=== PATIENT | female | born 1975 | race Caucasian/White ===

== ENCOUNTER 2019-04-14 12:15 | Emergency (ER) | payer OTHER ==
--- NOTE | 2019-04-14 12:38 | PDOC ---
Rapid Medical Evaluation Time Seen by Provider: 04/14/19 12:34 Medical Evaluation: 04/14/19 12:34 CC: Midsternal chest pain x3 days. PMHx- hypothyroidism, HTN PE: HR-109. BP-157/101. Lungs CTAB. No m/r/g. Orders: cardiac w/u Patient will proceed to the ED for further evaluation. 04/14/19 12:38 Discharge Disposition - Diagnosis Chest pain - Referrals - Patient Instructions - Post Discharge Activity
[2019-04-14 12:40] VITALS: BMI 36.3
--- NOTE | 2019-04-14 14:00 | PDOC ---
History of Present Illness - General History Source: Patient Exam Limitations: No Limitations - History of Present Illness Initial Comments: 04/14/19 13:54 43-year-old female with history of seasonal allergies, hypertension and hypothyroidism presents complaining of nonradiating midsternal chest pain, burning sensation and aching in nature constant for 2 days. Denies shortness of breath, palpitations, near syncope, abdominal pain, back pain, cough, recent illness, fever, chills, trauma or any other complaints. Her grandmother 2 days ago, today is the . Patient took 1 muscle relaxant and Naprosyn at 9:30 AM today with no relief of symptoms. LMP April 09, 2019. ROS: GENERAL/CONSTITUTIONAL: No fever, chills, weakness, dizziness HEAD, EYES, EARS, NOSE AND THROAT: No changes in vision, No ear pain or discharge, No sore throat CARDIOVASCULAR: Sternal chest pain RESPIRATORY: No shortness of breath or cough GASTROINTESTINAL: No pain, nausea, vomiting, diarrhea or constipation GENITOURINARY: No dysuria MUSCULOSKELETAL: No neck or back pain SKIN: No rash NEUROLOGIC: No headache, vertigo, loss of consciousness, or loss of sensation PE: GENERAL: well-appearing, tearful HEAD: NCAT EYES: Pupils equal, round and reactive to light, sclera anicteric, conjunctiva clear ENT: pharynx: no erythema, no exudate, uvula midline NECK: supple CHEST: nontender RESP: clear, no w/r/r CARDIO: rrr, no m/g/r ABD: +BS, soft, nontender, non distended BACK: no midline spinal ttp, no CVAT EXTREMITIES: Normal range of motion, no edema NEUROLOGICAL: Normal speech, normal gait SKIN: Warm, Dry Is this a multiple visit Asthma Patient?: No <Karina Maurer - Last Filed: 04/14/19 16:20> <Antonia Lucia - Last Filed: 04/14/19 17:00> - General Chief Complaint: Chest Pain Stated Complaint: chest tightness Time Seen by Provider: 04/14/19 12:34 Past History - Past Medical History COPD: No HTN: Yes Thyroid Disease: Yes (hypothyroid) - Psycho Social/Smoking Cessation Hx Smoking History: Never smoked Hx Alcohol Use: No Drug/Substance Use Hx: No <Karina Maurer - Last Filed: 04/14/19 16:20> <Antonia Lucia - Last Filed: 04/14/19 17:00> - Past Medical History Allergies/Adverse Reactions: Allergies Allergy/AdvReac Type Severity Reaction Status Date / Time No Known Allergies Allergy Verified 04/14/19 12:35 Home Medications: Ambulatory Orders Hydrochlorothiazide 25 mg PO DAILY 04/14/19 Levothyroxine [Synthroid -] 25 mcg PO DAILY 04/14/19 *Physical Exam - Vital Signs Last Vital Signs Temp Pulse Resp BP Pulse Ox 100.8 F H 112 H 20 157/110 H 97 04/14/19 12:35 04/14/19 12:35 04/14/19 12:35 04/14/19 12:35 04/14/19 12:35 <Karina Maurer - Last Filed: 04/14/19 16:20> - Vital Signs Last Vital Signs Temp Pulse Resp BP Pulse Ox 100.8 F H 112 H 20 157/110 H 97 04/14/19 12:35 04/14/19 12:35 04/14/19 12:35 04/14/19 12:35 04/14/19 12:35 <Antonia Lucia - Last Filed: 04/14/19 17:00> ED Treatment Course - LABORATORY CBC & Chemistry Diagram: 04/14/19 13:52 04/14/19 13:52 <Karina Maurer - Last Filed: 04/14/19 16:20> - LABORATORY CBC & Chemistry Diagram: 04/14/19 13:52 04/14/19 13:52 - ADDITIONAL ORDERS Additional order review: Laboratory Results 04/14/19 04/14/19 04/14/19 15:39 13:52 13:52 PT with INR 13.60 H INR 1.15 H PTT (Actin FS) 36.0 Sodium 139 Potassium 3.5 Chloride 105 Carbon Dioxide 26 Anion Gap 8 BUN 9.0 Creatinine 0.8 Est GFR (CKD-EPI)AfAm 104.65 Est GFR (CKD-EPI)NonAf 90.30 Random Glucose 88 Calcium 8.8 Magnesium 2.3 Total Bilirubin 0.6 AST 21 ALT 20 Alkaline Phosphatase 69 Creatine Kinase 129 Troponin I < 0.02 Total Protein 7.9 Albumin 4.0 04/14/19 13:52 RBC 4.31 MCV 83.5 MCHC 33.8 RDW 13.2 MPV 9.2 Neutrophils % 83.1 H Lymphocytes % 7.7 L Monocytes % 7.8 Eosinophils % 0.9 Basophils % 0.5 <Antonia Lucia - Last Filed: 04/14/19 17:00> Medical Decision Making - Medical Decision Making 04/14/19 15:57 43-year-old female with history of hypertension and hypothyroidism complaining of a burning aching midsternal chest pain constant since yesterday. Recently lost her grandmother, is scheduled for today. Tearful during the exam, denies fever, chills, cough, abdominal pain, diarrhea, vomiting or any other complaints. Repeat temperature 98.6 Chest x-ray is normal ecg - nsr, hr 98, no st or tw changes Awaiting lab results including troponin signed out JUANITO Babin <Karina Maurer - Last Filed: 04/14/19 16:20> - Medical Decision Making The patient was seen and evaluated in conjunction with midlevel provider under my direct supervision, ancillary studies were reviewed. I agree with the plan as outlined with JUANITO Maurer. HPI, workup/dispo as outlined. VS reviewed,+fever, hypertensive here for CP and recent stressors/loss of family member. repeat VS normalized 98.6, no longer tachy, EKG normal sinus rhythm at 98 bpm, no interval abnormalities, narrow QRS, ST and T wave segments and morphology normal. Nonspecific T wave abnormalities chest pain workup, repeat VS, trop/labs. r/o ACS 04/14/19 17:00 04/14/19 17:00 <Antonia Lucia - Last Filed: 04/14/19 17:00> Discharge - Discharge Information Problems reviewed: Yes <Karina Maurer - Last Filed: 04/14/19 16:20> <Antonia Lucia - Last Filed: 04/14/19 17:00> - Discharge Information Clinical Impression/Diagnosis: Chest pain Qualifiers: Chest pain type: other chest pain Qualified Code(s): R07.89 - Other chest pain Condition: Stable
[2019-04-14 14:17] LABS: BASO % 0.5 % (0-2.0); EOS % 0.9 % (0-4.5); HEMOGLOBIN 12.2 GM/dL (10.7-15.3); LYMPH % 7.7 % (8-40); MCH 28.2 pg (25.7-33.7); MCHC 33.8 g/dl (32.0-36.0); MEAN CELL VOLUME 83.5 fl (80-96); MEAN PLT VOLUME 9.2 fl (7.5-11.1); MONO % 7.8 % (3.8-10.2); NEUT % 83.1 % (42.8-82.8); PLATELET COUNT 317 K/MM3 (134-434); RBC 4.31 M/mm3 (3.60-5.2); RDW 13.2 % (11.6-15.6); WHITE BLOOD COUNT 8.3 K/mm3 (4.0-10.0)
[2019-04-14 14:52] LABS: BILIRUBIN,TOTAL 0.6 mg/dL (0.2-1); CALCIUM 8.8 mg/dL (8.5-10.1); CREATININE 0.8 mg/dL (0.55-1.3); MAGNESIUM 2.3 mg/dL (1.8-2.4); POTASSIUM 3.5 mmol/L (3.5-5.1); TOT PROT 7.9 g/dl (6.4-8.2)
[2019-04-14 16:31] LABS: INR 1.15 (0.83-1.09); PROTHROMBIN TIME (PATIENT) 13.6 SEC (9.7-13.0)
--- NOTE | 2019-04-14 16:50 | PDOC ---
*Physical Exam - Vital Signs Last Vital Signs Temp Pulse Resp BP Pulse Ox 100.8 F H 112 H 20 157/110 H 97 04/14/19 12:35 04/14/19 12:35 04/14/19 12:35 04/14/19 12:35 04/14/19 12:35 <Antonia Lucia - Last Filed: 04/16/19 08:51> - Vital Signs Last Vital Signs Temp Pulse Resp BP Pulse Ox 100.8 F H 112 H 20 157/110 H 97 04/14/19 12:35 04/14/19 12:35 04/14/19 12:35 04/14/19 12:35 04/14/19 12:35 <Parul Babin - Last Filed: 04/17/19 23:43> Heart Score/ECG Review #1 ECG reviewed & interpreted by me at: 13:15 General ECG Interpretation: Sinus Rhythm, Normal Rate, Normal Intervals 04/14/19 16:59 EKG normal sinus rhythm at 98 bpm, no interval abnormalities, narrow QRS, ST and T wave segments and morphology normal. Nonspecific T wave abnormalities <Antonia Lucia - Last Filed: 04/16/19 08:51> ED Treatment Course - LABORATORY CBC & Chemistry Diagram: 04/14/19 13:52 04/14/19 13:52 - ADDITIONAL ORDERS Additional order review: Laboratory Results 04/14/19 04/14/19 04/14/19 15:39 13:52 13:52 PT with INR 13.60 H INR 1.15 H PTT (Actin FS) 36.0 Sodium 139 Potassium 3.5 Chloride 105 Carbon Dioxide 26 Anion Gap 8 BUN 9.0 Creatinine 0.8 Est GFR (CKD-EPI)AfAm 104.65 Est GFR (CKD-EPI)NonAf 90.30 Random Glucose 88 Calcium 8.8 Magnesium 2.3 Total Bilirubin 0.6 AST 21 ALT 20 Alkaline Phosphatase 69 Creatine Kinase 129 Troponin I < 0.02 Total Protein 7.9 Albumin 4.0 04/14/19 13:52 RBC 4.31 MCV 83.5 MCHC 33.8 RDW 13.2 MPV 9.2 Neutrophils % 83.1 H Lymphocytes % 7.7 L Monocytes % 7.8 Eosinophils % 0.9 Basophils % 0.5 <Antonia Lucia - Last Filed: 04/16/19 08:51> - LABORATORY CBC & Chemistry Diagram: 04/14/19 13:52 04/14/19 13:52 - ADDITIONAL ORDERS Additional order review: Laboratory Results 04/14/19 04/14/19 04/14/19 15:39 13:52 13:52 PT with INR 13.60 H INR 1.15 H PTT (Actin FS) 36.0 Sodium 139 Potassium 3.5 Chloride 105 Carbon Dioxide 26 Anion Gap 8 BUN 9.0 Creatinine 0.8 Est GFR (CKD-EPI)AfAm 104.65 Est GFR (CKD-EPI)NonAf 90.30 Random Glucose 88 Calcium 8.8 Magnesium 2.3 Total Bilirubin 0.6 AST 21 ALT 20 Alkaline Phosphatase 69 Creatine Kinase 129 Troponin I < 0.02 Total Protein 7.9 Albumin 4.0 04/14/19 13:52 RBC 4.31 MCV 83.5 MCHC 33.8 RDW 13.2 MPV 9.2 Neutrophils % 83.1 H Lymphocytes % 7.7 L Monocytes % 7.8 Eosinophils % 0.9 Basophils % 0.5 <Parul Babin - Last Filed: 04/17/19 23:43> Medical Decision Making - Medical Decision Making please refer to attg attestation. 04/16/19 08:51 <Antonia Lucia - Last Filed: 04/16/19 08:51> - Medical Decision Making 04/14/19 16:48 Patient endorsed to me to follow repeat EKG and torp. Seen and evaluated has complaint of feeling dizzy and weak. Repeat EKG: SR at 91, normal axis deviation, no ST or T wave changes. 04/14/19 18:37 Patient is requesting to sign out AMA because she has to attend a . She understands that her symptoms may be undiagnosed and not limited to an [place]. However patient is refusing to sign the AMA papers. Patient discussed the matter with Dr. Lucia, and she indicated to me that Dr. Lucia said that she could be discharged formally. Patient remains tachycardic and thus unable to discharge formally. I discussed the matter with Dr. Lucia, and advised that the patient should sign out AMA. Attempted to have the patient sign the AMA forms again however she is refusing to sign. This was again discussed with Dr. Lucia. At this point patient requesting for me to transfer care to Dr. Lucia. Care was transferred to Dr. Lucia. <Parul Babin - Last Filed: 04/17/19 23:43> Discharge - Admission No <Antonia Lucia - Last Filed: 04/16/19 08:51> - Discharge Information Problems reviewed: Yes <SheridanGillAvinashPablo - Last Filed: 04/17/19 23:43> - Discharge Information Clinical Impression/Diagnosis: Viral syndrome Chest pain Qualifiers: Chest pain type: other chest pain Qualified Code(s): R07.89 - Other chest pain Condition: Stable Disposition: HOME - Follow up/Referral Ref[place] [facility] [Provider Group] [facility] [Provider Group] - Patient Discharge Instructions Patient Printed Discharge Instructions: DI for Viral Syndrome, DI for Chest Pain Additional Instructions: you were evaluated in the department for your chest pain you could have a viral illness, and chest pain related to your stressors stay well hydrated, rest avoid stressors/triggers return if worsening chest pain, shortness of breath, neurologic changes, syncope , dehydration, confusion, respiratory distress or infection follow up with your primary doctor in 1-2 days for reevaluation. - Post Discharge Activity Work/Back to School Note: Back to Work
[2019-04-14 18:49] VITALS: BP 143/99; TEMP 99.5
[2019-04-14] MEDS ORDERED: ACETAMINOPHEN 325 MG TABLET (FP) PO ONE (18:55)
[2019-04-14] MEDS ORDERED: ACETAMINOPHEN 325 MG TABLET (FP) ONE (18:57)
[2019-04-14] MEDS ORDERED: ALPRAZolam 0.25 MG TABLET ONE (18:57)
[2019-04-14] MEDS ORDERED: ALPRAZolam 0.25 MG TABLET PO ONE (19:00)
[2019-04-14 19:33] VITALS: PULSE 102
--- NOTE | 2019-04-14 19:35 | PDOC ---
*Physical Exam - Vital Signs Last Vital Signs Temp Pulse Resp BP Pulse Ox 99.5 F 117 H 20 143/99 99 04/14/19 18:48 04/14/19 18:48 04/14/19 12:35 04/14/19 18:48 04/14/19 18:48 ED Treatment Course - LABORATORY CBC & Chemistry Diagram: 04/14/19 13:52 04/14/19 13:52 - ADDITIONAL ORDERS Additional order review: Laboratory Results 04/14/19 04/14/19 04/14/19 17:25 15:39 13:52 PT with INR 13.60 H INR 1.15 H PTT (Actin FS) 36.0 Sodium 139 Potassium 3.5 Chloride 105 Carbon Dioxide 26 Anion Gap 8 BUN 9.0 Creatinine 0.8 Est GFR (CKD-EPI)AfAm 104.65 Est GFR (CKD-EPI)NonAf 90.30 Random Glucose 88 Calcium 8.8 Magnesium 2.3 Total Bilirubin 0.6 AST 21 ALT 20 Alkaline Phosphatase 69 Creatine Kinase 106 Troponin I < 0.02 Total Protein 7.9 Albumin 4.0 04/14/19 13:52 PT with INR INR PTT (Actin FS) Sodium Potassium Chloride Carbon Dioxide Anion Gap BUN Creatinine Est GFR (CKD-EPI)AfAm Est GFR (CKD-EPI)NonAf Random Glucose Calcium Magnesium Total Bilirubin AST ALT Alkaline Phosphatase Creatine Kinase 129 Troponin I < 0.02 Total Protein Albumin 04/14/19 13:52 RBC 4.31 MCV 83.5 MCHC 33.8 RDW 13.2 MPV 9.2 Neutrophils % 83.1 H Lymphocytes % 7.7 L Monocytes % 7.8 Eosinophils % 0.9 Basophils % 0.5 - Medications Given in the ED: ED Medications Discontinued Medications Generic Name Dose Route Start Last Admin Trade Name Freq PRN Reason Stop Dose Admin Acetaminophen 1,000 mg 04/14/19 18:55 04/14/19 18:59 Tylenol - PO 04/14/19 18:56 1,000 mg ONCE ONE Administration Alprazolam 0.5 mg 04/14/19 19:00 04/14/19 18:59 Xanax - PO 04/14/19 19:01 0.5 mg ONCE ONE Administration Medical Decision Making - Medical Decision Making 04/14/19 19:30 Vital Signs Temp Pulse Resp BP Pulse Ox 99.5 F 117 H 20 143/99 99 04/14/19 18:48 04/14/19 18:48 04/14/19 12:35 04/14/19 18:48 04/14/19 18:48 The patient was seen and evaluated in conjunction with midlevel provider under my direct supervision, ancillary studies were reviewed. I agree with the plan as outlined with WHITNEY Babin and JUANITO Maurer. HPI, workup/dispo as outlined. in summary: 43-year-old female with history of seasonal allergies, hypertension and hypothyroidism presents complaining of nonradiating midsternal chest pain, burning sensation and aching in nature constant for 2 days. Denies shortness of breath, palpitations, near syncope, abdominal pain, back pain, cough, recent illness, fever, chills, trauma or any other complaints. Her grandmother 2 days ago, tonight is the . Patient took 1 muscle relaxant and Naprosyn at 9:30 AM today with no relief of symptoms. VS reviewed,+fever tmax 100.8, will recheck, hypertensive 150s/110s initially here for CP LGF noted earlier, since improved also persistent tachycardia, which fluctuates in the 110s EKG normal sinus rhythm at 98 bpm, no interval abnormalities, narrow QRS, ST and T wave segments and morphology normal. Nonspecific T wave abnormalities chest pain workup, repeat VS, trop/labs. neg trop x2 repeat VS remains tachy, but with LGF, will give tylenol HR does elevate with her getting anxious and frustrated with the care and pending labs. clinically doubt PE or ACS or aortic dissection 04/14/19 18:56 initially slotted for AMA due to persistent tachy by midlevel provider, but pt declined to sign and requested update with MD +LUCINDA and given tylenol could be viral syndrome with some mild upper respiratory sx. cxr clear, unremarkable, no pna, no abx indicated, as likely viral syndrome repeat VS after anxiolysis HTN improving, bp 140s/80s. no cp or symptoms. no sob. no syncope, neuro intact. HR 102, SpO2 97% on RA, no respiratory distress speaking full sentences. explained to pt there are acute stressors that could elevate her BP and HR and workup unremarkable. DC in stable condiiton. return precaution, PMD followup, referral given pt made aware of impression and plan, agreeable. 04/16/19 07:24 Discharge - Discharge Information Problems reviewed: Yes Clinical Impression/Diagnosis: Viral syndrome Chest pain Qualifiers: Chest pain type: other chest pain Qualified Code(s): R07.89 - Other chest pain Condition: Stable Disposition: HOME - Admission No - Follow up/Referral Referrals: [facility] [place] [[facility] Group] [facility] [Provider Group] - Patient Discharge Instructions Patient Printed Discharge Instructions: DI for Viral Syndrome, DI for Chest Pain Additional Instructions: you were evaluated in the department for your chest pain you could have a viral illness, and chest pain related to your stressors stay well hydrated, rest avoid stressors/triggers return if worsening chest pain, shortness of breath, neurologic changes, syncope , dehydration, confusion, respiratory distress or infection follow up with your primary doctor in 1-2 days for reevaluation. - Post Discharge Activity Work/Back to School Note: Back to Work
--- NOTE | 2019-04-15 12:42 | EKG ---
Test Reason : Blood Pressure : / mmHG Vent. Rate : 098 BPM Atrial Rate : 098 BPM P-R Int : 146 ms QRS Dur : 088 ms QT Int : 364 ms P-R-T Axes : 035 000 020 degrees QTc Int : 464 ms POOR DATA QUALITY, INTERPRETATION MAY BE ADVERSELY AFFECTED NORMAL SINUS RHYTHM POSSIBLE ANTERIOR INFARCT , AGE UNDETERMINED ABNORMAL ECG NO PREVIOUS ECGS AVAILABLE Confirmed by CYNTHIA REDMOND MD ([id number]) on 04/15/2019 12:42:25 PM Referred By: Confirmed By:CYNTHIA REDMOND MD
--- NOTE | 2019-05-07 11:57 | EKG ---
Test Reason : Blood Pressure : / mmHG Vent. Rate : 091 BPM Atrial Rate : 091 BPM P-R Int : 142 ms QRS Dur : 098 ms QT Int : 372 ms P-R-T Axes : 017 016 001 degrees QTc Int : 457 ms NORMAL SINUS RHYTHM WHEN COMPARED WITH ECG OF 14-APR-2019 13:15, NO SIGNIFICANT CHANGE WAS FOUND Confirmed by FRANCI BURGOS MD ([id number]) on 05/07/2019 11:57:04 AM Referred By: Confirmed By:FRANCI BURGOS MD
== END 2019-04-14 19:39 | disposition home or self-care (01) ==
LOC: JER 12:15
DX: R07.89 Other chest pain (principal); I10 Essential (primary) hypertension; E07.9 Disorder of thyroid, unspecified
CPT/HCPCS: 36415; 71046-TC-FY; 80053; 82550; 83735; 84484; 85025; 85610; 85730; 93005; 93010; 99283-25